=== PATIENT | female | born 1950 | race Caucasian/White ===

== ENCOUNTER → 2017-11-24 | Outpatient (CLI) | payer MEDICARE | END | disposition home or self-care (01) | LOC: CFH 10:09 | PROVIDERS: ATTEND Nurse Practitioner | DX: Z13.820 Encounter for screening for osteoporosis (principal); Z12.31 Encounter for screening mammogram for malignant neoplasm of breast; M85.88 Other specified disorders of bone density and structure, other site; N95.8 Other specified menopausal and perimenopausal disorders | CPT/HCPCS: 77080; 77067 ==

== ENCOUNTER 2019-03-05 12:17 | Observation (INO) | payer MEDICARE ==
[2019-03-04 10:22] LABS: BASOPHILS # (AUTO) 0.07 x10^3/uL (0-0.1); BASOPHILS % (AUTO) 1 % (0-1); EOSINOPHILS # (AUTO) 0.02 x10^3/uL (0-0.4); EOSINOPHILS % (AUTO) 0 % (1-7); LYMPHOCYTES # (AUTO) 1.32 x10^3/uL (1-3.4); LYMPHOCYTES % (AUTO) 18 % (22-44); MD NO; MEAN CORPUSCULAR HEMOGLOBIN 32.2 pg (27.0-34.8); MEAN CORPUSCULAR HGB CONC 33.8 g/dL (32.4-35.8); MEAN CORPUSCULAR VOLUME 95.4 fL (80-100); MEAN PLATELET VOLUME 7.7 fL (7.4-10.4); MONOCYTES # (AUTO) 0.32 x10^3/uL (0.2-0.8); MONOCYTES % (AUTO) 4 % (2-9); NEUTROPHILS # (AUTO) 5.75 x10^3/uL (1.8-6.8); NEUTROPHILS % (AUTO) 77 % (42-75); PLATELET COUNT 206 x10^3/uL (130-400); RED BLOOD COUNT 4.54 x10^6/uL (3.82-5.3); RED CELL DISTRIBUTION WIDTH 12.8 % (9.6-15.2)
[2019-03-04 10:23] LABS: HCT (SEDRATE) 43.6 % (34.6-47.8)
[2019-03-04 10:29] LABS: INTERNATIONAL NORMALIZED RATIO 0.96 (0.93-1.1); PROTHROMBIN TIME 10.1 Seconds (9.6-11.5)
[2019-03-04 10:30] LABS: ALANINE AMINOTRANSFERASE 54 U/L (12-78); ALBUMIN 3.9 g/dL (3.4-5.0); ANION GAP 6 mmol/L (5-15); CALCIUM 9.9 mg/dL (8.5-10.1); CHLORIDE 102 mmol/L (98-107); CREATININE 0.71 mg/dL (0.55-1.02)
[2019-03-04 10:32] LABS: ALKALINE PHOSPHATASE 99 U/L (45-117); BILIRUBIN,TOTAL 0.4 mg/dL (0.2-1.0)
[~2019-03-05] VITALS: Ht 162.6 cm; Wt 63.0 kg
[~2019-03-05 12:17] MED LIST: ASCO10004 PO; ATOR80TA PO; B CO1TAB14 PO; DOCU-131 PO; GINK120C PO; GLUC1CAP13 PO; IBUP-1223 PO; LORA10TA75 PO; MULT-790 PO; MV-M1TAB16 PO; OMEG1CAP39 PO; TRAM50TA2 PO; TRAZ-137 PO; VIT1CAPS9 PO
[2019-03-05 13:02] VITALS: BP 115/74
[2019-03-05] MEDS ORDERED: LACTATED RINGERS 1,000 ML IV SCH (13:06)
[2019-03-05] MEDS ORDERED: VANCOMYCIN PMX 1GM/200ML 200 ML IV ONE (13:30)
[2019-03-05] MEDS ORDERED: KETOROLAC 60 MG/2 ML ONE (14:00)
[2019-03-05] MEDS ORDERED: EPINEPHRINE 1 MG/ML, 1ML ONE (14:01)
[2019-03-05] MEDS ORDERED: TRANEXAMIC ACID 100 MG/ML, 10ML ONE (14:01)
[2019-03-05] MEDS ORDERED: VANCOMYCIN 1,000 MG ONE (14:01)
[2019-03-05] MEDS ORDERED: ROPIvacaine/PF 0.2%, 20 ML ONE (14:01)
[2019-03-05] MEDS ORDERED: OXYcodone 5 MG/5 ML ORAL.SOL UDC PO PRN (14:30)
[2019-03-05] MEDS ORDERED: LABETALOL 5MG/ML, 20ML IV PRN (14:30)
[2019-03-05] MEDS ORDERED: LORazepam 2 MG/ML, 1ML IVPush PRN (14:30)
[2019-03-05] MEDS ORDERED: METOCLOPRAMIDE 5 MG/ML, 2ML IV PRN (14:30)
[2019-03-05] MEDS ORDERED: ACETAMINOPHEN 325 MG TABLET PO PRN (14:30)
[2019-03-05] MEDS ORDERED: ONDANSETRON 2MG/ML, 2ML IV PRN ×2 (14:30→17:00)
[2019-03-05] MEDS ORDERED: hydrALAzine 20 MG/ML, 1ML IV PRN (14:30)
[2019-03-05] MEDS ORDERED: MIDAZOLAM 1 MG/ML, 2ML ONE (14:42)
[2019-03-05] MEDS ORDERED: FENTANYL PF 250 MCG/5ML ONE (14:43)
[2019-03-05] MEDS ORDERED: LIDOCAINE 2% 100MG/5ML SYRINGE ONE (14:48)
[2019-03-05] MEDS ORDERED: ONDANSETRON 2MG/ML, 2ML ONE (14:48)
[2019-03-05] MEDS ORDERED: PROPOFOL 10 MG/ML, 20ML ONE (14:48)
[2019-03-05] MEDS ORDERED: ROCURONIUM 10MG/ML,5ML ONE (14:48)
[2019-03-05] MEDS ORDERED: DEXAMETHASONE 4 MG/ML, 1ML ONE (14:48)
[2019-03-05] MEDS: POTASSIUM CHLORIDE 20 MEQ in D5%-0.45% NACL 1,000 ML IV SCH ×3 (16:41→22:29)
[2019-03-05] MEDS ORDERED: OXYcodone 5 MG/5 ML ORAL.SOL UDC ONE ×2 (16:46→16:48)
[2019-03-05] MEDS ORDERED: FENTANYL PF 100 MCG/2ML ONE ×2 (16:46→17:27)
[2019-03-05] MEDS ORDERED: MEPERIDINE/PF 25MG/ML,1ML ONE (16:53)
[2019-03-05] MEDS ORDERED: ZOLPIDEM 5MG TABLET PO PRN (17:00)
[2019-03-05] MEDS ORDERED: PSYLLIUM PACKET PO PRN (17:00)
[2019-03-05] MEDS ORDERED: METOCLOPRAMIDE 10MG TABLET PO PRN (17:00)
[2019-03-05] MEDS ORDERED: SCOPOLAMINE PATCH, 1.5MG PATCH.TD72 TD SCH (17:00)
[2019-03-05] MEDS ORDERED: DIAZEPAM 5 MG TABLET PO PRN (17:00)
[2019-03-05] MEDS: MEPERIDINE/PF 25MG/ML,1ML IVPush PRN ×2 (17:00→17:05)
[2019-03-05] MEDS ORDERED: ONDANSETRON 4 MG TABLET PO PRN ×2 (17:00)
[2019-03-05] MEDS ORDERED: DIPHENHYDRAMINE 25 MG CAPSULE PO PRN (17:00)
[2019-03-05] MEDS ORDERED: ALUMINUM/MAG/SIMETHICONE 30 ML UDC PO PRN (17:00)
[2019-03-05] MEDS ORDERED: DEXAMETHASONE 4 MG/ML, 1ML IVPush PRN (17:00)
[2019-03-05] MEDS ORDERED: OXYcodone IR 5MG TABLET PO PRN (17:00)
[2019-03-05] MEDS ORDERED: BISACODYL 10 MG SUPP PR PRN (17:00)
[2019-03-05] MEDS ORDERED: POLYETHYLENE GLYCOL 17 GM PACKET PO PRN (17:00)
[2019-03-05] MEDS ORDERED: LORazepam 1MG TABLET PO PRN (17:00)
[2019-03-05] MEDS ORDERED: PROMETHAZINE 25 MG/ML, 1ML IM PRN (17:00)
[2019-03-05] MEDS ORDERED: TRANEXAMIC ACID 1,000 MG in SODIUM CHLORIDE 0.9% 100 ML IVPB ONE (17:00)
[2019-03-05] MEDS ORDERED: MAGNESIUM HYDROXIDE 8%, 30ML UDC PO PRN (17:00)
[2019-03-05] MEDS ORDERED: ONDANSETRON 2MG/ML, 2ML IVPush PRN (17:00)
[2019-03-05] MEDS ORDERED: METOCLOPRAMIDE 5 MG/ML, 2ML IVPush PRN (17:00)
[2019-03-05] MEDS ORDERED: MORPHINE SULFATE 4 MG/ML, 1ML IVPush PRN (17:00)
[2019-03-05] MEDS ORDERED: PROMETHAZINE 12.5 MG SUPP PR PRN (17:00)
[2019-03-05] MEDS ORDERED: SENNA/DOCUSATE TABLET PO PRN (17:00)
[2019-03-05] MEDS: FENTANYL PF 100 MCG/2ML IV PRN ×4 (17:10→17:37)
[2019-03-05] MEDS ORDERED: HYDROmorphone 1 MG/ML, 1ML INJ ONE (17:49)
[2019-03-05] MEDS: HYDROmorphone 2 MG/ML, 1ML IVPush PRN ×2 (17:51→18:04)
[2019-03-05 18:45] VITALS: BP 102/66
[2019-03-05] MEDS: ACETAMINOPHEN 500 MG TABLET PO SCH (20:00)
[2019-03-05] MEDS ORDERED: ATORVASTATIN 80 MG TABLET PO SCH (21:00)
[2019-03-05] MEDS ORDERED: DOCUSATE 100 MG CAPSULE PO SCH (21:00)
[2019-03-05] MEDS ORDERED: TRAZODONE 100MG TABLET PO SCH (21:00)
[2019-03-05] MEDS: CEFAZOLIN PMX 1GM/50ML 50 ML IVPB SCH (22:27)
[2019-03-05] MEDS: DOCUSATE 100 MG CAPSULE PO SCH (22:28)
[2019-03-05] MEDS: ASPIRIN 325 MG TABLET EC PO SCH (22:28)
[2019-03-05] MEDS: OXYcodone IR 5MG TABLET PO PRN (22:28)
[2019-03-05] MEDS: KETOROLAC 30 MG/1 ML IV SCH (22:29)
[2019-03-06] MEDS: OXYcodone IR 5MG TABLET PO PRN ×2 (02:24→05:57)
[2019-03-06] MEDS: ACETAMINOPHEN 500 MG TABLET PO SCH ×2 (02:28→05:54)
[2019-03-06 02:30] VITALS: BP 92/65
[2019-03-06] MEDS: KETOROLAC 30 MG/1 ML IV SCH ×2 (05:53→12:00)
[2019-03-06] MEDS: CEFAZOLIN PMX 1GM/50ML 50 ML IVPB SCH (05:53)
[2019-03-06 07:27] VITALS: BP 76/45
[2019-03-06] MEDS ORDERED: MULTIVITAMINS/MINERALS TABLET PO SCH (09:00)
[2019-03-06] MEDS ORDERED: ASCORBIC ACID 500 MG TABLET PO SCH (09:00)
[2019-03-06] MEDS ORDERED: MULTIVITS,STRESS FORMULA 1 TABLET PO SCH (09:00)
[2019-03-06] MEDS ORDERED: LORATADINE 10 MG TABLET PO SCH (09:00)
[2019-03-06] MEDS ORDERED: OMEGA-3/FISH OIL CAPSULE PO SCH (09:00)
[2019-03-06 09:27] VITALS: BP 94/53
[2019-03-06] MEDS: DOCUSATE 100 MG CAPSULE PO SCH (10:03)
[2019-03-06] MEDS: ASPIRIN 325 MG TABLET EC PO SCH (10:03)
[2019-03-06 10:06] VITALS: BP 94/56
[2019-03-06 11:17] VITALS: BP 96/59
[2019-03-06] MEDS ORDERED: OXYC5CAP2 PO (13:18)
[2019-03-06] MEDS ORDERED: DIAZ5TAB4 PO (13:19)
[2019-03-06] MEDS ORDERED: ASPI-650 PO (13:19)
== END 2019-03-06 14:00 | disposition home or self-care (01) ==
LOC: OUT 12:17 → EDSTATUS 15:00 → ORIP 16:41 → 4NE 18:27
PROVIDERS: ADMIT Orthopaedic Surgery Orthopaedic Surgery of the Spine; ATTEND Orthopaedic Surgery Orthopaedic Surgery of the Spine
DX: M16.12 Unilateral primary osteoarthritis, left hip (principal); E78.5 Hyperlipidemia, unspecified; Z79.899 Other long term (current) drug therapy; Z79.82 Long term (current) use of aspirin
CPT/HCPCS: 27130; 36415; 71046; 72170; 80053; 83036; 85014; 85018; 85025; 85610; 85651; 85730; 86850; 86900; 87081; 93005; 96365; 96366; 96375; 96376; 97161; 97166; 97535; C1776; G0378; J0171; J0690; J1100; J1170; J1885; J2175; J2250; J2270; J2405; J2704; J2795; J3010; J3370; J3480; J7120; Q0162

== ENCOUNTER 2020-04-06 09:41 | Outpatient (CLI) | payer MEDICARE ==
[~2020-04-06 09:41] MED LIST changes: +ASCO100018 PO; -ASCO10004 PO; +ASPI325T20 PO; +DIAZ5TAB4 PO; +FENTANYL PF 100 MCG/2ML ONE; +LIDOCAINE 2%, 20ML ONE; +MIDAZOLAM 1 MG/ML, 5ML ONE; +OXYC5CAP2 PO; -TRAZ-137 PO; +TRAZ-175 PO
== END 2020-04-06 23:59 | disposition home or self-care (01) ==
LOC: CFH 09:41
PROVIDERS: ATTEND Family Medicine
DX: R92.2 Inconclusive mammogram (principal)
CPT/HCPCS: 76642; 77061; J2250; J3010; 77065; G0279